=== PATIENT | female | born 1995 | race African-American/Black ===

== ENCOUNTER 2021-04-04 20:59 | Emergency (ER) | payer OTHER, SELFPAY ==
--- NOTE | ~2021-04-04 | XR_ITS ---
XR ankle RT min 3V 04/04/2021 21:57 INDICATION: Right ankle pain PROCEDURE: 4 views right ankle COMPARISON: No prior studies for comparison. FINDINGS: Fracture, dislocation or subluxation is not identified. Ankle mortise intact. The soft tiss ues appear within normal limits. No foreign bodies are identified. IMPRESSION: 1: NO ACUTE BONE OR JOINT ABNORMALITY IDENTIFIED. Reviewed, dictated and finalized at location A. [employer]
[2021-04-04 21:12] VITALS: BP 147/93; PULSE 118; RESP 18; TEMP 36.7; O2SAT 98
--- NOTE | 2021-04-04 22:56 | ED.LOWEXIN ---
HPI - Extremity Injury (Lower) General Chief Complaint: Extremity Injury, Lower Stated Complaint: ankle pain Time Seen by Provider: 04/04/21 21:46 Source: patient Mode of arrival: ambulatory Limitations: no limitations History of Present Illness HPI Narrative: 25-year-old female Here for an ankle injury At that earlier this afternoon she was descending some steps off her porch and missed 1 and twisted her right hand Initially she felt okay but after she napped for a while it was more sore and she had more discomfort when she was trying to bear weight and she decided to come get it checked out She does not have any other injuries Related Data Allergies Allergy/AdvReac Type Severity Reaction Status Date / Time CITRUS FRUIT Allergy Mild unknown Uncoded 04/04/21 21:46 Review of Systems Constitutional: Constitutional: Reports no additional constitutional complaints Cardiovascular: Cardiovascular: Denies chest pain Respiratory: Respiratory: Denies dyspnea Genitourinary: Genitourinary: Denies hematuria and Denies flank pain Musculoskeletal: Musculoskeletal: Denies back pain, Reports arthralgias and Reports joint swelling Neurologic: Denies focal weakness PMFSH Past Medical History Medical History Essential tremor Surgical History Surgical History History of tonsillectomy and adenoidectomy Family History Family History Grandparent Family history of obesity Family history of cataracts Family history of sleep apnea Social History Social History Smoking status: Never smoker Alcohol intake: never Substance use: never Exam Const: General: no acute distress and alert Nutritional Appearance: obese Orientation/consciousness: patient oriented x3 Eyes: Conjunctivae: conjunctivae normal EOM: EOMs intact bilaterally Resp: Effort & Inspection: normal respiratory effort and not labored Neuro: General: patient oriented x3 and moves all extremities Extrem: Other: Right ankle has mild lateral soft tissue swelling and tenderness, no deformity, no tenderness to the base of the fifth metatarsal, no tenderness posterior to the malleoli, no laxity Course Vital Signs Vital signs: Vital Signs Temperature 36.7 C 04/04/21 21:12 Pulse Rate 118 H 04/04/21 21:12 Respiratory Rate 18 04/04/21 21:12 Blood Pressure 147/93 H 04/04/21 21:12 Pulse Oximetry 98 04/04/21 21:12 Temperature 36.7 C 04/04/21 21:12 Pulse Rate 118 H 04/04/21 21:12 Respiratory Rate 18 04/04/21 21:12 Blood Pressure 147/93 H 04/04/21 21:12 Pulse Oximetry 98 04/04/21 21:12 MDM - Extremity Injury (Lower) Imaging Data Radiologist's impression: ITS Impressions Ankle X-Ray 04/04/21 22:02 IMPRESSION: 1: NO ACUTE BONE OR JOINT ABNORMALITY IDENTIFIED. Discharge Plan Discharge Clinical Impression: Ankle sprain, Fall on stairs Patient Disposition: Home, Self-Care Condition: Stable Instructions: Ankle Sprain (ED) Additional Instructions: Elevate the ankle above the level of your heart is much as you can for the first 1 to 2 days Take Advil or Aleve as needed for discomfort Plan ice bag for 10 or 15 minutes 3 or 4 times a day for the first 1 to 2 days Purchase a lace up type of ankle brace at many [employer] or sporting goods stores which can offer some additional support and comfort Prescriptions: No Action Gardasil 9 (PF) 0.5 mL suspension 0.5 ml IM ONCE Qty: 0.5 RF: 2 Follow-up/Referrals: PHYSICIAN NOT ON STAFF,NONSTAFF [Primary Care Provider] - Sanford Villalpando MD [Physician] - (You are unlikely is need to see an orthopedist but if you have persistent symptoms please contact Dr. Villalpando)
[2021-04-04 23:20] VITALS: BP 129/86; PULSE 100; RESP 18; O2SAT 100
== END 2021-04-04 23:20 | disposition home or self-care (01) ==
PROVIDERS: Emergency Provider Emergency Medicine
DX: S93.401A Sprain of unspecified ligament of right ankle, initial encounter (principal); W10.9XXA Fall (on) (from) unspecified stairs and steps, initial encounter
CPT/HCPCS: 73610; 99283

== ENCOUNTER 2021-08-30 18:34 | Emergency (ER) | payer OTHER, SELFPAY ==
--- NOTE | ~2021-08-30 | XR_ITS ---
EXAMINATION: XR chest 2V DATE: 08/30/2021 19:17 INDICATION: Left leg tingling in right arm numbness. TECHNIQUE: PA and lateral views of the chest are obtained. COMPARISON: None available FINDINGS: There are minimal airspace opacities in the right lung base. There is no pleural effusion o r pneumothorax. The cardiomediastinal silhouette is normal. The visualized bones and soft tissues are unremarkable. IMPRESSION: 1. Minimal right basilar airspace opacity, consistent with atelectasis versus pneumonia. Reviewed, dictated and finalized at location F. IMPRESSION: 1. Minimal right basilar airspace opacity, consistent with atelectasis versus p neumonia.
[2021-08-30 18:39] VITALS: BP 148/87; PULSE 124; RESP 18; TEMP 36.5; O2SAT 100
--- NOTE | 2021-08-30 18:48 | ECG_ITS ---
Measurements Intervals [place] Rate: 109 P: 69 MO: 174 QRS: 50 QRSD: 93 T: 44 QT: 343 QTc: 462 Interpretive Statements SINUS TACHYCARDIA BASELINE ARTIFACT BORDERLINE ECG NO PREVIOUS ECG AVAILABLE FOR COMPARISON Electronically Signed On 08-31-2021 16:43:20 CDT by Jeremy Echols M.D.
--- NOTE | 2021-08-30 18:50 | ED.GENADULT ---
HPI - General Adult General Chief complaint: Unspecified Stated complaint: lumps in my calves and arm Time Seen by Provider: 08/30/21 18:40 Source: patient Mode of arrival: ambulatory Limitations: no limitations History of Present Illness HPI narrative: This is a 25-year-old female that presents to the emergency department for lump noted in her right arm and right calf. Reports while she was shaving today she noted a lump in her right calf. The area is mildly tender to palpation. Reports upon arrival she noted a lump in her right upper arm. She has been feeling short of breath and has had some dizziness since recently having COVID. Denies fever, chest pain, erythema, edema, or numbness. Related Data Home Medications Medication Instructions Recorded Confirmed No Home Medications 08/30/21 08/30/21 Allergies Allergy/AdvReac Type Severity Reaction Status Date / Time CITRUS FRUIT Allergy Mild unknown Uncoded 08/30/21 18:49 Review of Systems Review of Systems: CONSTITUTIONAL: Denies fever CARDIOVASCULAR: Denies chest pain, or edema. RESPIRATORY: Reports dyspnea. SKIN: Denies rash NEUROLOGIC: Denies numbness, or weakness. All systems reviewed & are unremarkable except as noted in HPI and below PMFSH Past Medical History Medical History Essential tremor Surgical History Surgical History History of tonsillectomy and adenoidectomy Family History Family History Grandparent Family history of obesity Family history of cataracts Family history of sleep apnea Social History Social History Smoking status: Never smoker Alcohol intake: never Substance use: never Exam Narrative: GENERAL: Well-appearing, well-nourished, and in no acute distress. HEAD: Normocephalic, atraumatic. EYES: EOMI. CHEST: Clear to auscultation. No respiratory distress. No wheezes rales or rhonchi HEART: Tachycardic, regular rhythm. No murmur heard. Normal peripheral pulses. EXTREMITIES: Normal range of motion. No edema, erythema or warmth. Normal sensation SKIN: Warm, dry, no rash. NEURO: No focal deficits. Alert and oriented x3. PSYCH: Normal mood and affect Course Vital Signs Vital signs: Vital Signs Temperature 97.7 F 08/30/21 18:39 Pulse Rate 124 H 08/30/21 18:39 Respiratory Rate 18 08/30/21 18:39 Blood Pressure 148/87 H 08/30/21 18:39 Pulse Oximetry 100 08/30/21 18:39 Temperature 97.7 F 08/30/21 18:39 Pulse Rate 124 H 08/30/21 18:39 Respiratory Rate 20 08/30/21 18:58 Blood Pressure 148/87 H 08/30/21 18:39 Pulse Oximetry 100 08/30/21 18:39 Medical Decision Making MDM Narrative Medical decision making narrative: Patient presents to the emergency department for areas of soft tissue swelling to the right upper and lower extremity. Also reporting some ongoing dyspnea since having COVID a couple of months ago. She is afebrile and nontoxic-appearing. Lungs are clear on exam. Oxygen saturation has remained normal on room air. Tachycardic upon arrival, this normalized with IV fluid administration. CBC and metabolic panel without concerning findings. Chest x-ray shows atelectasis versus pneumonia. Patient does not have any current fever or cough. EKG shows sinus tach. D-dimer is not elevated. No concerning findings on exam of areas of concern. Patient will be set up with outpatient soft tissue ultrasounds. She is to follow-up with her primary care doctor. She was given warnings to return to the ER Vital Signs Vital Signs: Vital Signs Temperature 97.7 F 08/30/21 18:39 Pulse Rate 124 H 08/30/21 18:39 Respiratory Rate 18 08/30/21 18:39 Blood Pressure 148/87 H 08/30/21 18:39 Pulse Oximetry 100 08/30/21 18:39 Temperature 97.7 F 08/30/21 18:39 Pulse Rate
[2021-08-30 18:58] VITALS: RESP 20
[2021-08-30 19:22] LABS: Basophils Absolute Auto 0.1 K/mm3 (0.0-0.1); Basophils Percent Auto 0.9 % (0.2-1.2); Eosinophils Absolute Auto 0.1 K/mm3 (0-0.3); Eosinophils Percent Auto 0.8 % (0-4.4); Hematocrit 38.6 % (37.0-47.0); Hemoglobin 12.5 g/dL (12.0-15.0); Immature Granulocyte Absolute 0.02 K/mm3 (0.00-0.031); Immature Granulocyte Percent A 0.3 % (0-0.5); Mean Corpuscular HGB Conc 32.4 g/dl (32-36); Mean Corpuscular Hemoglobin 29.9 pg (26-34); Mean Corpuscular Volume 92.3 fl (80-100); Monocytes Absolute Auto 0.5 K/mm3 (0.1-0.6); Monocytes Percent Auto 7.9 % (2.6-8.5); Neutrophils Absolute Auto 2.6 K/mm3 (1.3-6.7); Neutrophils Percent Auto 41.1 % (45.5-73.1); Platelet Count Result 426 k/mm3 (150-375); Red Blood Count 4.18 M/mm3 (4.2-5.4); Red Cell Distribution Width 13.1 % (11.5-14.5); White Blood Count 6.3 K/mm3 (4.5-10.0)
[2021-08-30 19:32] LABS: Alanine Aminotransferase 28 U/L (4-35); Albumin Level 4.6 g/dL (3.5-5.1); Alkaline Phosphatase 80 U/L (38-126); Anion Gap 8 mmol/L (8-16); Aspartate Amino Transferase 36 U/L (14-36); Bilirubin,Total 0.5 mg/dL (0.2-1.3); Blood Urea Nitrogen 15 mg/dL (7-17); Calcium 8.8 mg/dL (8.4-10.2); Carbon Dioxide 24 mmol/L (22-30); Chloride 106 mmol/L (98-107); Estimated CRCL calculation 161 ml/min; Estimated Glomerular Filt Rate > 60; Glucose 92 mg/dL (65-110); Potassium 3.4 mmol/L (3.4-5.0); Prothrombin Time 12.9 Seconds (11.1-14.7); Sodium 138 mmol/L (137-145)
[2021-08-30 19:33] LABS: Partial Thromboplastin Time 28.5 SECONDS (22.3-36.8)
[2021-08-30] MEDS: SODIUM CHLORIDE 0.9% IV 500 ML 999 ML IV CONT (19:45)
[2021-08-30 19:50] LABS: D Dimer < 0.27 ug/mL (<0.48)
[2021-08-30 21:00] VITALS: BP 132/84; PULSE 110; RESP 16; O2SAT 97
== END 2021-08-30 21:00 | disposition home or self-care (01) ==
PROVIDERS: Physician Assistant; Emergency Provider Family Medicine
DX: R22.31 Localized swelling, mass and lump, right upper limb (principal); R22.41 Localized swelling, mass and lump, right lower limb; R06.02 Shortness of breath; R00.0 Tachycardia, unspecified
CPT/HCPCS: 36415; 71046; 80053; 85025; 85380; 85610; 85730; 93005; 96360; 99284; J7040

== ENCOUNTER 2022-01-11 23:20 | Emergency (ER) | payer OTHER, SELFPAY ==
--- NOTE | ~2022-01-11 | XR_ITS ---
EXAMINATION: XR chest 2V DATE: 01/12/2022 00:22 INDICATION: Palpitations. Lower extremity swelling. TECHNIQUE: Frontal and lateral views of the chest were obtained. COMPARISON: Chest 2 views 08/30/2021 FINDINGS: The chest demonstrates clear lungs without pneumonia, pleural effusion, or pneumothorax. Th e heart size is normal. IMPRESSION: 1. No acute cardiopulmonary disease. Reviewed, dictated and finalized at location A.
--- NOTE | 2022-01-11 23:24 | ECG_ITS ---
Measurements Intervals [place] Rate: 110 P: 44 [place]: 137 QRS: 44 QRSD: 94 T: 35 QT: 330 QTc: 448 Interpretive Statements SINUS TACHYCARDIA BASELINE ARTIFACT- I, III, AVL, V2, V4-V6 ABNORMAL ECG COMPARED TO ECG 08/30/2021 20:41:24 NO SIGNIFICANT CHANGES Electronically Signed On 01-12-2022 6:53:13 CDT by Leighton Hui D.O.
[2022-01-11 23:25] VITALS: BP 147/91; PULSE 118; RESP 18; TEMP 36.1; O2SAT 100
[2022-01-11 23:54] LABS: Basophils Absolute Auto 0.1 K/mm3 (0.0-0.1); Eosinophils Absolute Auto 0.1 K/mm3 (0-0.3); Eosinophils Percent Auto 1.8 % (0-4.4); Hematocrit 41.3 % (37.0-47.0); Hemoglobin 13.2 g/dL (12.0-15.0); Immature Granulocyte Absolute 0.02 K/mm3 (0.00-0.031); Immature Granulocyte Percent A 0.3 % (0-0.5); Lymphocytes Absolute Auto 4.59 K/mm3 (0.9-3.2); Lymphocytes Percent Auto 58.2 % (18.3-44.2); Mean Corpuscular Hemoglobin 29.7 pg (26-34); Mean Platelet Volume 10.4 fl (7.4-10.4); Monocytes Absolute Auto 0.9 K/mm3 (0.1-0.6); Neutrophils Absolute Auto 2.2 K/mm3 (1.3-6.7); Neutrophils Percent Auto 27.7 % (45.5-73.1); Platelet Count Result 454 k/mm3 (150-375); Red Blood Count 4.44 M/mm3 (4.2-5.4); Red Cell Distribution Width 13.5 % (11.5-14.5); White Blood Count 7.9 K/mm3 (4.5-10.0)
[2022-01-12 00:06] LABS: Alanine Aminotransferase 32 U/L (6-35); Albumin Level 4.5 g/dL (3.5-5.1); Alkaline Phosphatase 85 U/L (38-126); Anion Gap 10 mmol/L (8-16); Aspartate Amino Transferase 32 U/L (14-36); Bilirubin,Total 0.5 mg/dL (0.2-1.3); Blood Urea Nitrogen 14 mg/dL (7-17); Calcium 9.1 mg/dL (8.4-10.2); Carbon Dioxide 21 mmol/L (22-30); Chloride 105 mmol/L (98-107); Estimated CRCL calculation 156 ml/min; Estimated Glomerular Filt Rate > 60; Glucose 84 mg/dL (65-110); Lipase 197 U/L (23-300); Potassium 3.7 mmol/L (3.4-5.0); Sodium 136 mmol/L (137-145)
[2022-01-12 00:09] LABS: INR 0.9; Prothrombin Time 11.9 Seconds (11.1-14.7)
[2022-01-12 00:16] LABS: Troponin I < 0.012 ng/mL (0.000-0.034)
--- NOTE | 2022-01-12 01:47 | PC.NURSE ---
Lab called at this time to add on BNP
[2022-01-12 01:56] VITALS: BP 127/53; PULSE 97; RESP 18; O2SAT 98
[2022-01-12 01:59] VITALS: PULSE 87
[2022-01-12 02:08] LABS: NT Pro B Type Natriuretic Pept 23 pg/mL (5-100)
--- NOTE | 2022-01-12 02:27 | ED.GENADULT ---
HPI - General Adult General Chief complaint: Arrhythmia/Palpitations Stated complaint: Feet Swelling. Time Seen by Provider: 01/12/22 02:22 History of Present Illness HPI narrative: Patient is a 26-year-old female who presents the emergency department with chief complaint of lower extremity edema. Patient states that today she noticed that her legs were a little swollen on both of her legs. The patient states that they feel tight and also noticed that she has had some episodes where she has palpitations. Patient states that is worse whenever she lays flat reports that its not improved by anything patient reports she is not having any chest pain Related Data Home Medications Medication Instructions Recorded Confirmed No Home Medications 08/30/21 08/30/21 Allergies Allergy/AdvReac Type Severity Reaction Status Date / Time CITRUS FRUIT Allergy Mild unknown Uncoded 01/11/22 23:28 Review of Systems Review of Systems: A 10 system review of systems was completed on the patient and is negative except for what is stated in the HPI. Nursing and ancillary documentation was reviewed. [facility] Past Medical History Medical History Essential tremor Surgical History Surgical History History of tonsillectomy and adenoidectomy Family History Family History Grandparent Family history of obesity Family history of cataracts Family history of sleep apnea Social History Social History Smoking status: Never smoker Alcohol intake: never Substance use: never Exam Narrative: GENERAL: Well-appearing, well-nourished, and in no acute distress. HEAD: Normocephalic, atraumatic. EYES: PERRLA and EOMI. ENT: Nares clear, no rhinorrhea or epistaxis. Mucous membranes moist. NECK: Supple. CHEST: Clear to auscultation. No respiratory distress. HEART: Regular rate and rhythm. No murmur heard. Normal peripheral pulses. ABDOMEN: Soft, nontender, nondistended, normal active bowel sounds. EXTREMITIES: Normal range of motion. +1 nonpitting edema. SKIN: Warm, dry, no rash. NEURO: No focal deficits. Alert and oriented x3. PSYCH: Normal mood and affect. Course Course Emergency Course: EKG is sinus tachycardia rate of [address] elevation or ST depression Patient is showing no signs of acute decompensated heart failure the patient has a negative BNP and chest x-ray shows no evidence of focal infiltrate. The patient has negative troponin. The patient is feeling a little better now the patient will be given a single dose of p.o. Lasix to help with additional fluid and the patient should follow-up with her primary care physician the patient will be encouraged to elevate her lower extremities and decrease salt intake Vital Signs Vital signs: Vital Signs Temperature 36.1 C L 01/11/22 23:25 Pulse Rate 118 H 01/11/22 23:25 Respiratory Rate 18 01/11/22 23:25 Blood Pressure 147/91 H 01/11/22 23:25 Pulse Oximetry 100 01/11/22 23:25 Oxygen Delivery Room Air 01/11/22 23:25 Temperature 36.1 C L 01/11/22 23:25 Pulse Rate 87 01/12/22 01:59 Respiratory Rate 18 01/11/22 23:25 Blood Pressure 147/91 H 01/11/22 23:25 Pulse Oximetry 100 01/11/22 23:25 Oxygen Delivery Room Air 01/11/22 23:25 Medical Decision Making Vital Signs Vital Signs: Vital Signs Temperature 36.1 C L 01/11/22 23:25 Pulse Rate 118 H 01/11/22 23:25 Respiratory Rate 18 01/11/22 23:25 Blood Pressure 147/91 H 01/11/22 23:25 Pulse Oximetry 100 01/11/22 23:25 Oxygen Delivery Room Air 01/11/22 23:25 Temperature 36.1 C L 01/11/22 23:25 Pulse Rate 87 01/12/22 01:59 Respiratory Rate 18 01/11/22 23:25 Blood Pressure 147/91 H 01/11/22 23:25 Pulse Oximetry 100
[2022-01-12 02:36] VITALS: BP 118/65; PULSE 97; RESP 16; O2SAT 100
[2022-01-12 02:40] VITALS: BP 118/65; PULSE 104; RESP 22; O2SAT 100
[2022-01-12] MEDS: FUROSEMIDE 20 MG TABLET PO (02:42)
== END 2022-01-12 02:52 | disposition home or self-care (01) ==
PROVIDERS: Physician Assistant; Emergency Provider Emergency Medicine; PCP Family Medicine
DX: R60.0 Localized edema (principal); R00.2 Palpitations; R00.0 Tachycardia, unspecified
CPT/HCPCS: 36415; 71046; 80053; 83690; 83880; 84484; 85025; 85610; 85730; 93005; 99284; A9270

== ENCOUNTER 2022-06-20 17:28 | Emergency (ER) | payer OTHER, SELFPAY ==
[2022-06-20 17:38] VITALS: BP 136/81; PULSE 93; RESP 18; TEMP 36.7; O2SAT 100
--- NOTE | 2022-06-20 19:58 | ED.SKABFB ---
HPI - Skin/Abscess/Foreign Bdy General Chief complaint: Skin/Abscess/Foreign Body Stated complaint: rash x1 week Time Seen by Provider: 06/20/22 19:07 History of Present Illness HPI narrative: This is a 26F w/history of lower extremity edema and essential tremor, who presents complaining of urinary incontinence and rash. The rash is full body, present for the past week, itches and got worse after starting an oatmeal body wash yesterday. She denies associated fevers or presence of the rash in the mouth or genitals. She also complains of intermittent urinary incontinence occasionally associated with dysuria. This is worse with prolonged standing. She denies current use of diuretics. Related Data Allergies Allergy/AdvReac Type Severity Reaction Status Date / Time CITRUS FRUIT Allergy Mild unknown Uncoded 06/20/22 19:14 Review of Systems Review of Systems: CONSTITUTIONAL: Denies fever, chills, or sweats. EYES: Denies visual changes, redness, or discharge. ENT: Denies rhinorrhea, congestion, sore throat, or otalgia. CARDIOVASCULAR: Denies chest pain, palpitations, or edema. RESPIRATORY: Denies cough or dyspnea. GASTROINTESTINAL: Denies abdominal pain, nausea, vomiting, or diarrhea. GENITOURINARY: Urinary inconinence; Denies dysuria or hematuria. SKIN: rash with itching. MUSCULOSKELETAL: Denies back pain, joint pain, or myalgia. NEUROLOGIC: Denies headache, numbness, dizziness, or weakness. PSYCHIATRIC: Denies anxiety or depression. PMFSH Past Medical History Medical History Essential tremor Low TSH level Prediabetes Surgical History Surgical History History of tonsillectomy and adenoidectomy Family History Family History Grandparent Family history of obesity Family history of cataracts Family history of sleep apnea Social History Social History Smoking status: Never smoker Alcohol intake: never Substance use: never Exam Narrative: GENERAL: Well-developed, well-nourished, and in no acute distress. HEAD: Normocephalic, atraumatic. EYES: PERRLA and EOMI. ENT: Nares clear, no rhinorrhea or epistaxis. Mucous membranes moist. Oropharynx without tonsillar hypertrophy exudate or other lesions. CHEST: Clear to auscultation. No respiratory distress. No wheezes rales or rhonchi HEART: Regular rate and rhythm. No murmur heard. Normal peripheral pulses. ABDOMEN: Soft, nontender to palpation, nondistended, normal active bowel sounds. No CVA tenderness to palpation EXTREMITIES: Normal range of motion. No edema. SKIN: Warm, dry; scaling, papular rash with satellite lesions seen in flexor surface of elbows, over back, and in integumentary folds. Hyperpigmentation of the nape of neck NEURO: No focal deficits. Alert and oriented x3. Fine tremor PSYCH: Normal mood and affect. Course Course Emergency Course: 20:54 - UA negative. test negative. Will discharge with Clotrimazole and primary care follow up. Discussed return and emergency precautions including signs/symptoms of UTI. The patient voiced understanding and agreement. All questions answered to the patient's satisfaction. Vital Signs Vital signs: Vital Signs Temperature 98.1 F 06/20/22 17:38 Pulse Rate 93 06/20/22 17:38 Respiratory Rate 18 06/20/22 17:38 Blood Pressure 136/81 06/20/22 17:38 Pulse Oximetry 100 06/20/22 17:38 Oxygen Delivery Room Air 06/20/22 17:38 Temperature 98.1 F 06/20/22 17:38 Pulse Rate 93 06/20/22 17:38 Respiratory Rate 18 06/20/22 17:38 Blood Pressure 136/81 06/20/22 17:38 Pulse Oximetry 100 06/20/22 17:38 Oxygen Delivery Room Air 06/20/22 17:38 MDM - Skin/Abscess/Foreign Bdy MDM Narrative Medical decision making narrative: Plan: UA, test, antifu
[2022-06-20 20:45] LABS: Appearance Urine Slightly Cloudy (Clear); Bilirubin Urine 1+ (Negative); Blood Urine 3+ (Negative); Color Urine Yellow (Yellow); Glucose Urine UA Negative (Negative); Ketones Urine 2+ mg/dL (Negative); Leukocyte Esterase Ur Negative LEU/UL (Negative); Nitrate Urine Negative (Negative); Protein Urine 1+ mg/dL (Negative); Specific Grav Ur 1.025 (1.001-1.035); Urobilinogen Urine 0.2 mg/dL (<2.0)
[2022-06-20 20:48] LABS: Mucus Urine Rare /lpf; Squamous Epithelial Cell Urine Many /hpf (Few); WBC Urine 0-3 /hpf
[2022-06-20 20:51] LABS: Add Urine Microscopic? YES
== END 2022-06-20 21:12 | disposition home or self-care (01) ==
PROVIDERS: Emergency Provider Preventive Medicine Aerospace Medicine; PCP Family Medicine
DX: R32 Unspecified urinary incontinence (principal); R21 Rash and other nonspecific skin eruption; G25.0 Essential tremor
CPT/HCPCS: 81001; 81025; 99283

== ENCOUNTER 2022-08-31 11:06 | Outpatient (CLI) | payer OTHER, SELFPAY ==
[2022-08-31 11:39] LABS: Basophils Absolute Auto 0.1 K/mm3 (0.0-0.1); Eosinophils Absolute Auto 0.1 K/mm3 (0-0.3); Eosinophils Percent Auto 2.2 % (0-4.4); Hemoglobin 12.9 g/dL (12.0-15.0); Immature Granulocyte Absolute 0.01 K/mm3 (0.00-0.031); Immature Granulocyte Percent A 0.2 % (0-0.5); Lymphocytes Absolute Auto 2.77 K/mm3 (0.9-3.2); Lymphocytes Percent Auto 54.9 % (18.3-44.2); Mean Corpuscular HGB Conc 32.3 g/dl (32-36); Mean Corpuscular Hemoglobin 29.9 pg (26-34); Mean Corpuscular Volume 92.6 fl (80-100); Monocytes Absolute Auto 0.5 K/mm3 (0.1-0.6); Monocytes Percent Auto 9.3 % (2.6-8.5); Neutrophils Absolute Auto 1.6 K/mm3 (1.3-6.7); Neutrophils Percent Auto 32.4 % (45.5-73.1); Platelet Count Result 378 k/mm3 (150-375); Red Blood Count 4.32 M/mm3 (4.2-5.4); Red Cell Distribution Width 13.2 % (11.5-14.5); White Blood Count 5.1 K/mm3 (4.5-10.0)
[2022-08-31 11:51] LABS: Alanine Aminotransferase 23 U/L (6-35); Albumin Level 4.6 g/dL (3.5-5.1); Alkaline Phosphatase 70 U/L (38-126); Anion Gap 8 mmol/L (8-16); Aspartate Amino Transferase 25 U/L (14-36); Bilirubin,Total 0.8 mg/dL (0.2-1.3); Blood Urea Nitrogen 15 mg/dL (7-17); Carbon Dioxide 27 mmol/L (22-30); Chloride 106 mmol/L (98-107); Cholesterol 209 mg/dL (0-200); Estimated Glomerular Filt Rate > 60; Glucose 94 mg/dL (65-110); HDL Direct 50 mg/dL; Potassium 4.6 mmol/L (3.4-5.0); Sodium 141 mmol/L (137-145); Triglycerides 108 mg/dL (<150)
[2022-08-31 12:01] LABS: LDL Cholesterol Direct 101 mg/dL
[2022-08-31 12:10] LABS: Free T4 Free Thyroxine 1.03 ng/mL (0.78-2.19); Vitamin D 25 Hydroxy 22.5 ng/mL
== END 2022-08-31 11:07 | disposition home or self-care (01) ==
LOC: ANHLAB 11:08
PROVIDERS: PCP Family Medicine; Visit Provider Registered Nurse
DX: Z00.00 Encounter for general adult medical examination without abnormal findings (principal)
CPT/HCPCS: 36415; 80053; 80061; 82306; 84439; 84443; 85025

== ENCOUNTER 2022-11-01 11:24 | Outpatient (CLI) | payer OTHER, SELFPAY ==
[2022-11-01 12:54] LABS: Free T4 Free Thyroxine 0.91 ng/mL (0.78-2.19)
[2022-11-01 13:03] LABS: Hemoglobin A1C 5.5 % (<5.7)
[2022-11-04 10:42] LABS: DHEA-Sulfate 68 mcg/dL (18-391); Sex Hormone Binding Globulin 38 nmol/L (17-124)
[2022-11-07 06:18] LABS: FSH 7.3 mIU/mL (***); LH 8.9 mIU/mL (***); Prolactin 11.6 ng/mL (***)
[2022-11-09 02:25] LABS: Estradiol, Ultrasensitive 62 pg/mL
== END 2022-11-01 11:25 | disposition home or self-care (01) ==
LOC: ANHLAB 11:26
PROVIDERS: PCP Family Medicine; Visit Provider Registered Nurse
DX: E28.2 Polycystic ovarian syndrome (principal)
CPT/HCPCS: 36415; 82627; 82670; 83001; 83002; 83036; 83498; 83525; 84146; 84270; 84439; 84443

== ENCOUNTER 2022-11-21 15:04 | Outpatient (CLI) | payer OTHER, SELFPAY ==
--- NOTE | ~2022-11-21 | US_ITS ---
EXAMINATION: US pelvic complete w TV DATE: 11/21/2022 16:02 INDICATION: Abnormal uterine and vaginal bleeding. Irregular menses. TECHNIQUE: Multiple transabdominal and transvaginal sonographic images of the pelvis were obtained. COMPARISON: Ultrasound 08/24/16 FINDINGS: TRANSABDOMINAL ULTRASOUND: The uterus measures 6.2 x 3.2 x 4.0 cm. There is no free fluid in the pelvis. TRANSVAGINAL ULTRASOUND: The endometrial complex measures 6 mm in thickness. There is a nabothian cyst in the cervix. The righ t ovary measures 4.5 x 2.1 x 3.2 cm. The left ovary measures 2.8 x 2.4 x 4.1 cm. There is normal vasc ular flow in the ovaries. IMPRESSION: 1. Normal pelvis. Reviewed, dictated and finalized at location E. IMPRESSION: 1. Normal pelvis.
== END 2022-11-21 15:05 | disposition home or self-care (01) ==
PROVIDERS: PCP Family Medicine; Visit Provider Registered Nurse
DX: N93.9 Abnormal uterine and vaginal bleeding, unspecified (principal)
CPT/HCPCS: 76830; 76856